=== PATIENT | female | born 1945 | race Caucasian/White ===

== ENCOUNTER 2018-02-27 14:16 | Inpatient (IN) ==
--- OUTSIDE RECORDS SUMMARY | 2018-02-27 14:29 | External Medical Summary ---
:1945 Author Organization [employer] Care Team Providers Name Role Phone Peterson Kumar Provider Role Unavailable Allergies, Adverse Reactions, Alerts Substance Reaction Event Type Morphine Sulfate (pf) *analgesics Opioid* Info Not Available Non Drug Allergy Aleve *analgesics Antiinflammatory* Info Not Available Non Drug Allergy Hydrochlorothiazide *diuretics* Info Not Available Non Drug Allergy Cephalosporins Info Not Available Non Drug Allergy Hydrocodoneacetaminophen *analgesics Opioid* Info Not Available Non Drug Allergy Sulfa Drugs Info Not Available Non Drug Allergy Acetaminophen Extra Strength *analgesics Info Not Available Non Drug Allergy Nonnarco Problems Problem Type Condition Code Onset Dates Condition Status Problem Diarrhea 787.91 Inactive Problem Acute pancreatitis 577.0 Active Problem Nausea alone 787.02 Active Problem Need for influenza vaccination Z23 Active Problem Hyperlipemia 272.4 Active Problem DM w/o complication type II, E11.65 Active uncontrolled Problem Abdominal pain 789.00 Active Problem Cyst and pseudocyst of pancreas 577.2 Active Problem Elevated liver enzymes 790.5 Active Problem 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 Assessment Need for influenza vaccination Z23 Active Problem Open wound of abdominal wall, 879.4 Inactive lateral, without mention of complication Problem Open wound(s) (multiple) of 879.8 Inactive unspecified site(s), without mention of complication Assessment DM w/o complication type II, E11.65 Active uncontrolled Problem Diabetes mellitus without mention of 250.02 Active complication, type II or unspecified type, uncontrolled Problem Fistula of intestine, excluding 569.81 Inactive rectum and anus Problem Other specified counseling V65.49 Inactive Medications Medication Code Code Instructions Start End Status Dosage System Date Date Bisacodyl EC [facility] [address]-10 5 MG Oral qd not defined ProAir HFA [facility] [address]-71 108 (90 Base) 2 puffs as MCG/ACT needed Inhalation every [address] [facility] 24664380388 40 MG Orally 1 tablet Calcium One at bedtime NovoLog Flexpen [facility] [address]-47 100 UNIT/ML up 22 Subcutaneous units TID with meals Allergy Relief [facility] [address]-42 10 MG Orally 1 tablet Once a day Tolterodine [facility] [address]-49 4 MG Orally 1 capsule Tartrate ER Once a day Coreg [facility] [address]-86 12.5 MG Oral not 1tab bid defined Albuterol [facility] [address]-91 (2.5 MG/3ML) 3 ml Sulfate 0.083% Inhalation Three times a day Lantus [facility] [address]-26 100 UNIT/ML October 40 units Subcutaneous 2013 daily at bedtime [id number] [facility] [address]35-[address]65 1000 Orally 1 tab daily D3 Adult [facility] [address]57-97489 1000 UNIT not Orally defined Citalopram [facility] [address]-63 20 MG Orally 1 tablet Hydrobromide Once a day Lansoprazole [facility] [address]-79 30 MG Orally 1 tablet Once a day on the tongue and allow to dissolve Advair Diskus [facility] [address]-49 500-50 MCG/DOSE not Inhalation defined 1puff qd EpiPen 2-Sam [facility] [address]-82 0.3 MG/03ML not Injection as defined directed Amlodipine [facility] [address]-54 5 MG Orally BID 1 [address] Besylate MagOx [address] [facility] [address]019 400 (241.3 Mg) not MG Orally defined Glucagon [facility] [address]-61 1 mg Injection March 03, as Emergency use as directed 2014 directed for unconscious low blood sugars Multiple [facility] [address] Oral not Vitamins defined Pen [place] [facility] [id number] 31G X 5 MM 3 (three) 11/11" Misc, daily Fluticasone [facility] [address]-25 50 MCG/ACT 1 spray in Propionate Nasally Once a each day nostril Procedures Procedure Coding System Code Date FLU VAC NO PRSV 4 ROSA ELENA 3 YRS+ CPT-4 07249 Jun 05, 2015 IMMUNIZATION ADMIN CPT-4 74725 Jun 05, 2015 GLYCATED HEMOGLOBIN TEST CPT-4 80407 Jun 05, 2015 Office Visit, Est Pt., Level 4 CPT-4 75739 Jun 05, 2015 Vital Signs Date/Time: Jun 05, 2015 Blood Pressure Systolic 110 mm Hg Weight 218 lbs Height 64.5 in BMI 36.84 Index Respiratory Rate 16 /min Cardiac Monitoring Heart Rate 60 /min Blood Pressure Diastolic 70 mm Hg Results No Known Results Immunizations Vaccine Administration Date Influenza Split 3 yrs > (QUAD) Jun 05, 2015 Summary Purpose [employer]Works Submission
--- OUTSIDE RECORDS SUMMARY | 2018-02-27 14:29 | External Medical Summary ---
:1945 Author Organization [employer] Care Team Providers Name Role Phone Peterson Kumar Provider Role Unavailable Allergies, Adverse Reactions, Alerts Substance Reaction Event Type Acetaminophen Extra Strength *analgesics Info Not Available Non Drug Allergy Nonnarco Morphine Sulfate (pf) *analgesics Opioid* Info Not [...] Drug Allergy Nonnarco Problems Problem Type Condition ICD-9 Code Onset Dates Condition Status Problem Diabetes mellitus without 250.02 Active mention of complication, type II or unspecified type, uncontrolled Problem Diarrhea 787.91 Inactive Problem Other specified counseling V65.49 Inactive Problem Elevated liver enzymes 790.5 Active Problem 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 Problem Hyperlipemia 272.4 Active Problem Acute pancreatitis 577.0 Active Problem Nausea alone 787.02 Active Problem Abdominal pain 789.00 Active Problem Cyst and pseudocyst of pancreas 577.2 Active Assessment Diabetes mellitus without 250.02 Active mention of complication, type II or unspecified type, uncontrolled Problem Fistula of intestine, excluding 569.81 Inactive rectum and anus Problem Open wound of abdominal wall, 879.4 Inactive lateral, without mention of complication Assessment Hyperlipemia 272.4 Active Problem Open wound(s) (multiple) of 879.8 Inactive unspecified site(s), without mention of complication Medications Medication Code Code Instructions Start End Date Status Dosage System Date Prevacid [facility][NOTE 3] 87098-04 30 MG Oral 1 not defined - daily Multiple [facility][NOTE 3] 45155-85 Oral not defined Vitamins 912 Pen [place] 0 31G X 5 MM 3 November 23, not defined 11/11" (three) [facility] [place] [place] 2013 daily Norvasc [facility][NOTE 3] 51949-00 5 MG Orally Once 1 tablet 30-41 a day Advair Diskus [facility][NOTE 3] 70680-94 500-50 MCG/DOSE not defined 97-00 Inhalation 1puff qd Atorvastatin [facility][NOTE 3] 87139-29 40 MG Orally One Sep 04, 1 tablet Calcium 21-05 at bedtime 2015 Coreg [facility][NOTE 3] 05303-73 12.5 MG Oral not defined 41-20 1tab bid Lantus [facility][NOTE 3] 40054-06 100 UNIT/ML November 23, insulin 20-33 Subcutaneous 40 2013 units at bedtime NovoLog Flexpen [facility][NOTE 3] 31443-92 100 UNIT/ML Oct 12, carb ratio 39-10 Subcutaneous 10 2013 dose units with meals ProAir HFA [facility][NOTE 3] 67368-30 108 (90 Base) 2 puffs as 51-85 MCG/ACT needed Inhalation every 4 hrs Mucinex DM [facility][NOTE 3] 04408-75 30-600 MG Orally 1 tablet as 96-20 every 12 hrs needed Bisacodyl EC [facility][NOTE 3] 96660-73 5 MG Oral qd not defined 98-03 Flonase [facility][NOTE 3] 16462-37 50 MCG/ACT Nasal not defined 53-01 Zofran [facility][NOTE 3] 58490-84 4 MG Oral 1tab q not defined 46-00 46hrs prn Pen [place] 0 31G X 6 MM 1 Oct 12, not defined (one) Misc three 2014 times daily Celexa [facility][NOTE 3] 63043-57 20 MG Oral 1tab not defined 20-01 qd Detrol LA [facility][NOTE 3] 95729-10 4 MG Oral qd not defined 91-01 EpiPen 2-Sam [facility][NOTE 3] 95402-71 0.3 MG/03ML not defined 00- Injection as directed Procedures Procedure Coding System Code Date Office Visit, Est Pt., Level 4 CPT-4 09604 Sep 04, 2014 Vital Signs Date/Time: Sep 04, 2014 Blood Pressure Systolic 130 mm Hg Weight 214 lbs Height 64.5 in BMI 36.16 Index Respiratory Rate 16 /min Cardiac Monitoring Heart Rate 66 /min Blood Pressure Diastolic 72 mm Hg Results No Known Results Summary Purpose [employer]ClinicalWorks Submission
--- OUTSIDE RECORDS SUMMARY | 2018-02-27 14:29 | External Medical Summary | Clinical Summary ---
:1945 Author Organization [facility] Address [address] [place] [address] Care Team Providers Name Role Phone HollinsAna Unavailable Unavailable Rosenda Rene MD Unavailable Jarad Ames MD Primary Care Provider Source Comments Some departments are not documenting in the electronic medical record. If you do not see the information that you expected, contact Release of Information in the Health Information Management department at [phone] for further assistance in locating additional records.[facility] Allergies Active Allergy Reactions Severity Noted Date Comments Naproxen Sodium RASH Medium 04/07/2015 Cephalosporins HIVES Medium 04/07/2015 Hydrochlorothiazide RASH Medium 04/07/2015 Hydrocodone RASH Medium 04/07/2015 Morphine RASH Medium 04/07/2015 Sulfa (Sulfonamide Antibiotics) RASH Medium 04/07/2015 Current Medications Prescription Sig. Disp. Refills Start Date End Date Status citalopram (CELEXA) 20 Take 200 mg by mouth Active mg tablet daily. lansoprazole DR(+) Take 30 mg by mouth Active (PREVACID) 30 mg capsule daily. tolterodine LA(+) Take 4 mg by mouth Active (DETROL LA) 4 mg capsule daily. atorvastatin (LIPITOR) Take 40 mg by mouth Active 40 mg tablet daily. fluticasone-salmeterol Inhale 1 Puff by Active (ADVAIR DISKUS) 500-50 mouth every 12 mcg inhalation disk hours. albuterol (PROAIR HFA) Inhale 2 Puffs by Active 90 mcg/actuation inhaler mouth every 6 hours as needed for Wheezing. albuterol 0.5% Inhale 2.5 mg Active (PROVENTIL; VENTOLIN) solution as directed 2.5 mg/0.5 mL nebu every 6 hours as nebulizer solution needed. insulin glargine Inject 40 Units into Active (LANTUS) 100 unit/mL area(s) as directed injection at bedtime daily. bisacodyl (DULCOLAX) 5 Take 5 mg by mouth Active mg tablet every 24 hours as needed for Constipation. aspirin EC 81 mg tablet Take 81 mg by mouth Active daily. Active Problems Problem Noted Date Sensorineural hearing loss, bilateral 04/07/2015 Subjective tinnitus of both ears 04/07/2015 Family History Medical History Relation Name Comments Dizziness Mother Hypertension Mother Stroke Mother Dizziness Paternal Grandmother Allergy-severe Sister Dizziness Sister Hypertension Sister Anemia Sister Relation Name Status Comments Father Mother Paternal Grandmother Sister Alive Sister Alive Sister Alive Social History Tobacco Use Types Packs/Day Years Used Date Never Smoker Smokeless Tobacco: Never Used Alcohol Use Drinks/Week oz/Week Comments No Sex Assigned at Date Recorded Not on file Last Filed Vital Signs Vital Sign Reading Time Taken Blood Pressure 138/70 04/07/2015 8:26 AM CDT Pulse 65 04/07/2015 8:26 AM CDT Temperature - - Respiratory Rate - - Oxygen Saturation - - Inhaled Oxygen Concentration - - Weight 99.8 kg (220 lb) 04/07/2015 8:26 AM CDT Height 165.1 cm (5' 5") 04/07/2015 8:26 AM CDT Body Mass Index 36.61 04/07/2015 8:26 AM CDT Plan of Treatment Health Maintenance Due Date Last Done Comments PHYSICAL (COMPREHENSIVE) EXAM 1950 PERTUSSIS VACCINE 1954 TETANUS VACCINE 1960 BREAST CANCER SCREENING 1983 COLORECTAL CANCER SCREENING 1993 SHINGLES RECOMBINANT VACCINE (1 of 2) 1993 OSTEOPOROSIS SCREENING 2008 PNEUMONIA (PCV13/PPSV23) VACCINES (1 of 2 - PCV13) 2008 INFLUENZA VACCINE 05/29/2018
--- OUTSIDE RECORDS SUMMARY | 2018-02-27 14:30 | External Medical Summary ---
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 Assessment Diabetic retinopathy without E11.319 Active macular edema Problem Open wound of abdominal wall, 879.4 Inactive lateral, without mention of complication Problem Open wound(s) (multiple) of 879.8 Inactive unspecified site(s), without mention of complication Assessment DM w/o complication type II, E11.65 Active uncontrolled Problem Diabetes mellitus without mention 250.02 Active of complication, type II or unspecified type, uncontrolled Problem Fistula of intestine, excluding 569.81 Inactive rectum and anus Problem Other specified counseling V65.49 Inactive Medications Medication Code Code Instructions Start End Status Dosage System Date Date Lansoprazole [facility] [address]-94 30 MG Orally 1 tablet Once a day on the tongue and allow to dissolve Fluticasone [facility] [address]-69 50 MCG/ACT 1 spray in Propionate Nasally Once a each day nostril Albuterol [facility] [address]-53 (2.5 MG/3ML) 3 ml Sulfate 0.083% Inhalation Three times a day Allergy Relief [facility] [address]-79 10 MG Orally 1 tablet Once a day D3 Adult [facility] 45[address]87 1000 UNIT not Orally defined Pen [place] [facility] 01150235290 31G X 5 MM 3 (three) 11/11" Misc, daily Bisacodyl EC [facility] [address]-94 5 MG Oral qd not defined Citalopram [facility] [address]-17 20 MG Orally 1 tablet Hydrobromide Once a day NovoLog Flexpen [facility] [address]-96 100 UNIT/ML up 22 Subcutaneous units TID with meals MagOx 400 [facility] [address]25-[address]50 400 (241.3 Mg) not MG Orally defined Atorvastatin [facility] 52041725349 40 MG Orally 1 tablet Calcium One at bedtime Glucagon [facility] [address]-18 1 mg Injection March 03, as Emergency use as directed 2014 directed for unconscious low blood sugars Coreg [facility] [address]-72 12.5 MG Oral not 1tab bid defined Multiple [facility] [address]376 Oral not Vitamins defined Tolterodine [facility] [address]-76 4 MG Orally 1 capsule Tartrate ER Once a day Amlodipine [facility] [address]-94 5 MG Orally BID 1 tablet Besylate EpiPen 2-Sam [facility] [address]-88 0.3 MG/03ML not Injection as defined directed Lantus [facility] [address]-08 100 UNIT/ML October 40 units Subcutaneous 2013 daily at bedtime Advair Diskus [facility] [address]-70 500-50 MCG/DOSE not Inhalation defined 1puff qd W97-Zuqtzl [facility] [address]00-[address]52 1000 Orally 1 tab daily ProAir HFA [facility] [address]-98 108 (90 Base) 2 puffs as MCG/ACT needed Inhalation every 4 hrs Procedures Procedure Coding System Code Date GLUCOSE MONITORING, CONT CPT-4 94649 Jun 06, 2015 Results No Known Results Summary Purpose eClinicalWorks Submission
--- OUTSIDE RECORDS SUMMARY | 2018-02-27 14:30 | External Medical Summary ---
:1945 Author Organization [employer] Care Team Providers Name Role Phone Leann Durant Provider Role Unavailable Allergies, Adverse Reactions, Alerts [...] and pseudocyst of pancreas 577.2 Active Assessment Elevated liver enzymes 790.5 Active Problem Fistula of intestine, excluding 569.81 Inactive rectum and anus Problem Open wound of abdominal wall, 879.4 Inactive lateral, without mention of complication Problem Open wound(s) (multiple) of 879.8 Inactive unspecified site(s), without mention of complication Medications Medication Code System Code Instructions Start End Date Status Dosage Date Mucinex DM [facility] 57215-63 30-600 MG Orally 1 tablet as 96-20 every 12 hrs needed Pen Man [facility] 0 31G X 5 MM 3 November 23, not defined 11/11" (three) [facility] [place] 2013 daily Detrol LA [facility] 41480-99 4 MG Oral qd not defined Flonase [facility] 84006-51 50 MCG/ACT Nasal not defined Celexa [facility] 56726-02 20 MG Oral 1tab not defined qd Lantus [facility] 16345-44 100 UNIT/ML November 23, Insulin 20-33 Subcutaneous 35 2014 units qhs Multiple [facility] 87179-10 Oral not defined Vitamins 912 Prevacid [facility] 71630-57 30 MG Oral 1 not defined - daily Advair Diskus [facility] 98289-98 500-50 MCG/DOSE not defined 97-00 Inhalation 1puff qd Bisacodyl EC [facility] 31747-45 5 MG Oral qd not defined 98-03 Zofran [facility] 08244-76 4 MG Oral 1tab q not defined 46-00 46hrs prn EpiPen 2-Sam [facility] 37800-22 0.3 MG/03ML not defined Injection as directed Pen Man [facility] 0 31G X 6 MM 1 Oct 12, not defined (one) Mis three 2014 times daily Coreg [facility] 06074-00 12.5 MG Oral not defined 41-20 1tab bid ProAir HFA [facility] 65221-76 108 (90 Base) 2 puffs as 51-85 MCG/ACT needed Inhalation every 4 hrs Norvasc [facility] 71685-10 5 MG Orally Once 1 tablet 30-41 a day NovoLog Flexpen [facility] 01447-08 100 UNIT/ML Oct 12, carb ratio 39-10 Subcutaneous 10 2013 dose units with meals Procedures Procedure Coding System Code Date Billed by outside source CPT-4 NOBLL Sep 04, 2014 Vital Signs Date/Time: Sep 04, 2014 Blood Pressure Systolic 150 mm Hg Weight 214 lbs Height 64.5 in BMI 36.16 Index Respiratory Rate 16 /min Cardiac Monitoring Heart Rate 60 /min Blood Pressure Diastolic 76 mm Hg Results No Known Results Summary Purpose [employer]ClinicalWorks Submission
--- OUTSIDE RECORDS SUMMARY | 2018-02-27 14:30 | External Medical Summary ---
:1945 Author Organization [employer] Care Team Providers Name Role Phone Peterson Kumar Provider Role Unavailable Allergies No Known Allergies Problems Problem Type Condition Code Onset Dates Condition Status Problem Diabetes mellitus without mention of 250.02 [...] and pseudocyst of pancreas 577.2 Active Problem Fistula of intestine, excluding 569.81 Inactive rectum and anus Problem Open wound of abdominal wall, 879.4 Inactive lateral, without mention of complication Problem Open wound(s) (multiple) of 879.8 Inactive unspecified site(s), without mention of complication Medications No Known Medications Results No Known Results Summary Purpose [facility] Submission
--- OUTSIDE RECORDS SUMMARY | 2018-02-27 14:30 | External Medical Summary ---
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
--- OUTSIDE RECORDS SUMMARY | 2018-02-27 14:30 | External Medical Summary ---
:1945 Author Organization [employer] Care Team Providers Name Role Phone Leann Durant Provider Role Unavailable Allergies, Adverse Reactions, Alerts Substance Reaction Event Type Hydrochlorothiazide *diuretics* Info Not Available Non Drug Allergy Cephalosporins Info Not Available Non Drug Allergy Hydrocodoneacetaminophen *analgesics Opioid* Info Not Available Non Drug Allergy Sulfa Drugs Info Not Available Non Drug Allergy Acetaminophen Extra Strength *analgesics Info Not Available Non Drug Allergy Nonnarco Acetaminophen Extra Strength *analgesics Info Not Available Non Drug Allergy Nonnarco Morphine Sulfate (pf) *analgesics Opioid* Info Not Available Non Drug Allergy Aleve *analgesics Antiinflammatory* Info Not Available Non Drug Allergy Problems Problem Type Condition ICD-9 Code Onset Dates Condition Status Problem Open wound of abdominal wall, 879.4 Inactive lateral, without mention of complication Problem Diabetes mellitus without 250.02 Active mention of complication, type II or unspecified type, uncontrolled Problem Open wound(s) (multiple) of 879.8 Inactive unspecified site(s), without mention of complication Problem Abdominal pain 789.00 Active Problem Cyst and pseudocyst of pancreas 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.2 Active Problem 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 Problem Diarrhea 787.91 Inactive Problem Other specified counseling V65.49 Inactive Problem Acute pancreatitis 577.0 Active Problem Nausea alone 787.02 Active Assessment Abdominal pain 789.00 Active Assessment 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 Problem Fistula of intestine, excluding 569.81 Inactive rectum and anus Medications Medication Code System Code Instructions Start End Date Status Dosage Date Multiple [facility] 47095-62 Oral Active not defined Vitamins 912 Bisacodyl EC [facility] 68523-80 5 MG Oral qd Active not defined 98-03 Lantus [facility] 67262-23 100 UNIT/ML November 23, Active Insulin 20-33 Subcutaneous 35 2014 units qhs Celexa [facility] 14772-21 20 MG Oral 1tab Active not defined 20- qd Norvasc [facility] 41186-15 5 MG Orally Once Active 1 tablet 30-41 a day Advair Diskus [facility] 51328-10 500-50 MCG/DOSE Active not defined 97-00 Inhalation 1puff qd EpiPen 2-Sam [facility] 79901-73 0.3 MG/03ML Active not defined 00 Injection as directed Zofran [facility] 50558-20 4 MG Oral 1tab q Active not defined 46-00 46hrs prn Prevacid [facility] 39613-19 30 MG Oral 1 [place] [address]-15 4 MG Oral qd Active not defined Pen [place] 0 31G X 5 MM 3 November 23, Active not defined 11/11" (three) [facility] [place] NovoLog Flexpen [facility] 13037-88 100 UNIT/ML Oct 12, Active carb ratio 39-10 Subcutaneous 2013 dose units with meals Amlodipine [facility] 09665-25 2.5 MG Oral bid Active not defined Besylate Docusate Sodium [facility] 55312-37 50 MG/15ML Oral Active not defined 02-19 50ml bid Flonase [facility] 40367-57 50 MCG/ACT Nasal Active not defined Pen [place] NDC 0 31G X 6 MM 1 Oct 12, Active not defined (one) [facility] [place] 2014 times daily Coreg [facility] 33101-20 12.5 MG Oral Active not defined 41-20 1tab bid Procedures Procedure Coding System Code Date Office Visit, Est Pt., Level 3 CPT-4 47525 Jun 14, 2014 Vital Signs Date/Time: Jun 14, 2014 Blood Pressure Systolic 144 mm Hg Weight 209.3 lbs Height 64.5 in BMI 35.37 Index Respiratory Rate 16 /min Cardiac Monitoring Heart Rate 72 /min Blood Pressure Diastolic 68 mm Hg Results No Known Results Summary Purpose [employer] Submission
--- OUTSIDE RECORDS SUMMARY | 2018-02-27 14:30 | External Medical Summary ---
[...] Start End Status Dosage System Date Date [place] 0 31G X 6 MM 1 Oct 12, not (one) [facility] [place] 2013 defined three times daily Multiple [facility] [place]NOTE 3] [address] Oral not Vitamins defined Celexa [facility] [place][NOTE 3] [address]-51 20 MG Oral 1tab not qd defined Pen [place] [facility] [place]NOTE 3] 23384839366 31G X 5 MM 3 (three) 11/11" [facility] [place], daily Zofran [facility] [place][NOTE 3] [address]-42 4 MG Oral 1tab not q 46hrs prn defined Advair Diskus [facility] [place][NOTE 3] [address]-43 500-50 MCG/DOSE not Inhalation defined 1puff qd Atorvastatin [facility] [place][NOTE 3] 33711091332 40 MG Orally 1 tablet Calcium One at bedtime Coreg [facility] [place]NOTE 3] [address]-46 12.5 MG Oral not 1tab bid defined NovoLog Flexpen [facility] [place]NOTE 3] [address]-53 100 UNIT/ML up 22 Subcutaneous units TID with meals Lantus [facility]NOTE 3] [address]-76 100 UNIT/ML October 40 units Subcutaneous 2013 daily at bedtime Mucinex DM [facility] [place][NOTE 3] [address]-19 30-600 MG 1 tablet Orally every 12 as needed hrs ProAir HFA [facility] [place]NOTE 3] [address]-09 108 (90 Base) 2 puffs as MCG/ACT needed Inhalation every 4 hrs Bisacodyl EC [facility] [place]NOTE 3] [address]-90 5 MG Oral qd not defined Flonase [facility] [place]NOTE 3] [address]-64 50 MCG/ACT not Nasal defined Norvasc [facility]NOTE 3] [address]-06 5 MG Orally 1 tablet Once a day Glucagon [facility] [place]NOTE 3] [address]-80 1 mg Injection March 03, as Emergency use as directed 2014 directed for unconscious low blood sugars Prevacid [facility]NOTE 3] [address]-10 30 MG Oral 1 not daily defined Detrol LA [facility] [place]NOTE 3] [address]-96 4 MG Oral qd not defined EpiPen 2-Sam [facility] [place][NOTE 3] [address]-66 0.3 MG/03ML not Injection as defined directed Procedures Procedure Coding System Code Date Office Visit, Est Pt., Level 4 CPT-4 06476 March 03, 2015 GLYCATED HEMOGLOBIN TEST CPT-4 55325 March 03, 2015 Vital Signs Date/Time: March 03, 2015 Blood Pressure Systolic 140 mm Hg Weight 217 lbs Height 64.5 in BMI 36.67 Index Respiratory Rate 16 /min Cardiac Monitoring Heart Rate 66 /min Blood Pressure Diastolic 80 mm Hg Results Name Result Date Reference Range Unit Abnormality Flag Hemoglobin A1c (HbA1c) Summary Purpose eClinicalWorks Submission
--- OUTSIDE RECORDS SUMMARY | 2018-02-27 14:30 | External Medical Summary ---
:1945 Author Organization eClinicalWorks Care Team Providers Name Role Phone Peterson Kumar Provider Role Unavailable Allergies No Known Allergies Problems Problem Type Condition Code Onset Dates Condition Status Problem Open wound of abdominal wall, 879.4 Inactive lateral, without mention of complication Problem Nausea alone 787.02 Active Problem Open wound(s) (multiple) of 879.8 Inactive unspecified site(s), without mention of complication Problem Fistula of intestine, excluding 569.81 Inactive rectum and anus Problem Diabetes type 2, controlled E11.9 Active Problem Hyperlipemia 272.4 Active Problem Diabetes type 2, uncontrolled E11.65 Active Problem Cyst and pseudocyst of pancreas 577.2 Active Problem Acute pancreatitis 577.0 Active Problem Elevated liver enzymes 790.5 Active Problem 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
--- OUTSIDE RECORDS SUMMARY | 2018-02-27 14:30 | External Medical Summary ---
[...] End Status Dosage System Date Date Lansoprazole [facility] [place] 2] [address]-98 30 MG Orally 1 tablet Once a day on the tongue and allow to dissolve Fluticasone [facility] [place]NOTE 2] [address]-04 50 MCG/ACT 1 spray in Propionate Nasally Once a each day nostril Albuterol [facility] [place]NOTE 2] [address]-88 (2.5 MG/3ML) 3 ml Sulfate 0.083% Inhalation Three times a day Allergy Relief [facility] [place]NOTE 2] [address]-41 10 MG Orally 1 tablet Once a day D3 Adult [facility] [place]NOTE 2] 28[address] 1000 UNIT not Orally defined [place] [facility] [place]NOTE 2] 05446912636 31G X 5 MM 3 (three) 11/11" Misc, daily Bisacodyl EC [facility] [place]NOTE 2] [address]-74 5 MG Oral qd not defined Citalopram [facility] [place]NOTE 2] [address]-92 20 MG Orally 1 tablet Hydrobromide Once a day NovoLog Flexpen [facility] [place]NOTE 2] [address]-68 100 UNIT/ML up 22 Subcutaneous units TID with meals MagOx 400 [facility] [place]NOTE 2] 75953-[address]92 400 (241.3 Mg) not MG Orally defined Atorvastatin [facility] [place]NOTE 2] 12708654874 40 MG Orally 1 tablet Calcium One at bedtime Glucagon [facility] [place]NOTE 2] [address]-71 1 mg Injection March 03, as Emergency use as directed 2014 directed for unconscious low blood sugars Coreg [facility] [place]NOTE 2] [address]-07 12.5 MG Oral not 1tab bid defined Multiple [facility] [place]NOTE 2] 26778-95[address] Oral not Vitamins defined Tolterodine [facility] [place]NOTE 2] [address]-15 4 MG Orally 1 capsule Tartrate ER Once a day Amlodipine [facility] [place]NOTE 2] [address]-66 5 MG Orally BID 1 tablet Besylate EpiPen 2-Sam [facility] [place]NOTE 2] [address]-37 0.3 MG/03ML not Injection as defined directed Lantus [facility] [place]NOTE 2] [address]-58 100 UNIT/ML October 40 units Subcutaneous 2013 daily at bedtime Advair Diskus [facility] [place]NOTE 2] [address]-13 500-50 MCG/DOSE not Inhalation defined 1puff qd J76-Ethkif [facility] [place]NOTE 2] 39067[address] 1000 Orally 1 tab daily ProAir HFA [facility] [place]NOTE 2] [address]-02 108 (90 Base) 2 puffs as MCG/ACT needed Inhalation every 4 hrs Procedures Procedure Coding System Code Date GLUCOSE MONITORING, CONT CPT-4 28529 Jun 06, 2015 Results No Known Results Summary Purpose eClinicalWorks Submission
--- OUTSIDE RECORDS SUMMARY | 2018-02-27 14:30 | External Medical Summary ---
[...] Medications Results No Known Results Summary Purpose [employer] Submission
--- OUTSIDE RECORDS SUMMARY | 2018-02-27 14:31 | External Medical Summary ---
:1945 Author Organization eClinicalWorks Care Team Providers Name Role Phone Peterson Kumar Provider Role Unavailable Allergies No Known Allergies Problems Problem Type Condition Code Onset Dates Condition Status Problem Fistula of intestine, excluding 569.81 Inactive rectum and anus Problem Open wound(s) (multiple) of 879.8 Inactive unspecified site(s), without mention of complication Problem Open wound of abdominal wall, 879.4 Inactive lateral, without mention of complication Problem Hyperlipemia 272.4 Active Problem Elevated liver enzymes 790.5 Active Problem DM w/o complication type II, E11.65 Active uncontrolled Problem Acute pancreatitis 577.0 Active Problem Nausea alone 787.02 Active Problem 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
--- OUTSIDE RECORDS SUMMARY | 2018-02-27 14:31 | External Medical Summary ---
[...] Medications Results No Known Results Summary Purpose [employer] Submission
--- OUTSIDE RECORDS SUMMARY | 2018-02-27 14:31 | External Medical Summary ---
[...] pancreas 577.2 Active Assessment Diabetes mellitus without mention of 250.02 Active complication, type II or unspecified type, uncontrolled Problem Fistula of intestine, excluding 569.81 Inactive rectum and anus Problem Open wound of abdominal wall, 879.4 Inactive lateral, without mention of complication Problem Open wound(s) (multiple) of 879.8 Inactive unspecified site(s), without mention of complication Medications Medication Code Code Instructions Start End Status Dosage System Date Date Detrol LA [facility] [address]-39 4 MG Oral qd not defined Flonase [facility] [address]-29 50 MCG/ACT not Nasal defined Mucinex DM [facility] [address]-20 30-600 MG 1 tablet Orally every 12 as needed hrs Celexa [facility] [address]-29 20 MG Oral 1tab not qd defined Advair Diskus [facility] [address]-95 500-50 MCG/DOSE not Inhalation defined 1puff qd ProAir HFA [facility] [address]-97 108 (90 Base) 2 puffs as MCG/ACT needed Inhalation every 4 hrs Prevacid [facility] [address]-74 30 MG Oral 1 not daily defined NovoLog Flexpen [facility] [id number] 100 UNIT/ML 10 units, Subcutaneo us, with meals Atorvastatin [facility] [address]-87 40 MG Orally Sep 04, 1 tablet Calcium One at bedtime 2014 Norvasc [facility] [address]-49 5 MG Orally 1 tablet Once a day Zofran [facility] [address]-52 4 MG Oral 1tab not q 46hrs prn defined [place] 0 31G X 5 MM 3 October not 11/11" (three) [facility] [place] 2013 defined daily [place] 0 31G X 6 MM 1 Oct 12, not (one) [facility] [place] 2013 defined three times daily Coreg [facility] [address]-75 12.5 MG Oral not 1tab bid defined Lantus [facility] [address]-80 100 UNIT/ML October insulin Subcutaneous 35 2013 units at bedtime Bisacodyl EC [facility] [address]-02 5 MG Oral qd not defined Multiple [facility] [address]7467 Oral not Vitamins defined EpiPen 2-Sam [facility] [address]-58 0.3 MG/03ML not Injection as defined directed Procedures Procedure Coding System Code Date Office Visit, Est Pt., Level 4 CPT-4 59520 December 02, 2014 GLYCATED HEMOGLOBIN TEST CPT-4 41818 December 02, 2014 Vital Signs Date/Time: December 02, 2014 Blood Pressure Systolic 130 mm Hg Weight 214.4 lbs Height 64.5 in BMI 36.23 Index Respiratory Rate 16 /min Cardiac Monitoring Heart Rate 66 /min Blood Pressure Diastolic 72 mm Hg Results No Known Results Summary Purpose eClinicalWorks Submission
--- OUTSIDE RECORDS SUMMARY | 2018-02-27 14:31 | External Medical Summary ---
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 Medications Medication Code Code Instructions Start End Status Dosage System Date Date Allergy Relief [facility] [address]-74 10 MG Orally 1 tablet Once a day Fluticasone [facility] [address]-25 50 MCG/ACT 1 spray in Propionate Nasally Once a each day nostril Tolterodine [facility] [address]-31 4 MG Orally 1 capsule Tartrate ER Once a day Citalopram [facility] [address]-51 20 MG Orally 1 tablet Hydrobromide Once a day Potassium [facility] [address]-05 20 MEQ Orally not Chloride once daily defined PC Unifine [facility] 8214-354832 31G X 8 MM March 23, as Pentips subcutaneous 2016 directed three times a day NovoLog Flexpen [facility] [address]-92 100 UNIT/ML up to 12 Subcutaneous on units with slliding scale each meal D3 Adult [facility] [address]3410 1000 UNIT not Orally defined Glucagon [facility] [address]-29 1 mg Injection March 03, as Emergency use as directed 2014 directed for unconscious low blood sugars Lasix [facility] [address]-46 40 MG Orally 1 1 tablet tablet am and noon Symbicort [facility] [address]-06 160-4.5 MCG/ACT 2 puffs Inhalation every 12 hours Spiriva NDC 0 2.5 mcg 2 puffs Respimat Inhalation Daily Accu-Chek NDC 0 1 In Vitro Apr 01, as SmartView times daily 2015 directed Coreg [facility] [address]-25 12.5 MG Oral 1/2 tablet bid [id number] [facility] [address]607 Orally daily 1 tab 100mcg Amlodipine [facility] [address]-58 5 MG Orally BID 1 tablet Besylate Multiple [facility] [address]86 Oral not Vitamins defined [place] [facility] 40553291463 31G X 5 MM 3 (three) 11/11" Misc, daily Lansoprazole [facility] [address]-07 30 MG Orally 1 tablet Once a day on the tongue and allow to dissolve MagOx 400 [facility] [address]-22441 64 mg Orally 64mg once a day Bisacodyl EC [facility] [address]-24 5 MG Oral qd not defined EpiPen 2-Sam [facility] [address]-33 0.3 MG/03ML not Injection as defined directed Aspirin [facility] [address]-99 81 MG Orally 1 tablet Once a day Zofran [facility] [address]-86 4 MG Orally 1 tablet Once a day as needed Atorvastatin [facility] 27573417281 40 MG Orally 1 tablet Calcium One at bedtime Alprazolam [facility] [address]-90 0.5 MG Orally 1/2 tablet as needed Lantus [facility] [address]-58 100 UNIT/ML Aug 25, 50 units Subcutaneous 2014 daily at bedtime Procedures Procedure Coding System Code Date Office Visit, Est Pt., Level 4 CPT-4 79376 Apr 01, 2016 HG A1C LEVEL 7.0-9.0% CPT-4 3045F Apr 01, 2016 GLYCATED HEMOGLOBIN TEST IH CPT-4 60241 Apr 01, 2016 Vital Signs Date/Time: Apr 01, 2016 Blood Pressure Systolic 126 mm Hg Weight 211 lbs Height 64.5 in BMI 35.65 Index Respiratory Rate 16 /min Cardiac Monitoring Heart Rate 74 /min Blood Pressure Diastolic 74 mm Hg Results Name Result Date Reference Range Unit Abnormality Flag Hemoglobin A1c (HbA1c) ----Hemoglobin A1c 7.3% [id number] Summary Purpose eClinicalWorks Submission
--- OUTSIDE RECORDS SUMMARY | 2018-02-27 14:31 | External Medical Summary ---
[...] Medications Results No Known Results Summary Purpose [employer] Submission
[2018-02-27 15:01] VITALS: BMI 35.2
[2018-02-27] MEDS ORDERED: NS 1,000 ML IV ONE (15:21)
--- NOTE | 2018-02-27 15:27 | History & Physical Report ---
History of Present Illness Date: 02/27/18 Chief complaint: Abdominal pain, vomiting HPI: Patient is a 72-year-old female who had a recent history of sciatica pain radiating down the right leg. On 02/25/18, the pain got severe, patient went to [facility] for evaluation. There she was given IV pain medication and discharged home with oral oxycodone 5 milligram tabs. Tuesday evening following taking oxycodone she began to have vomiting and this was persistent on Tuesday. Last night she began having increased abdominal pain accompanied with nausea. This morning she was able to have one very hard bowel movement and also had some bright red blood from straining. She does have a known history of hemorrhoids. This afternoon patient presented to see Dr. Zambrano at [facility] due to her increased abdominal pain and vomiting. He felt the patient needed acute evaluation and treatment. He contacted the hospitalist services and patient was sent as a direct admission to [facility] hospitalist staff. She is admitted as outpatient observation under the care of Dr. Rodriges. Salima is seen for initial examination on arrival. She is alert, oriented, appears to be in a mild amount of distress and relates this to her abdominal pain. She reports currently the pain is worse on the left side of her abdomen at the site of a previous feeding tube. She reports she had the feeding tube for less than 1 year following diagnosis of acute pancreatitis. She has no further problems since that time. Review of Systems All systems PM: 10-point ROS was reviewed, no additional remarkable complaints except - Constitutional Constitutional: Present: anorexia - Gastrointestinal Gastrointestinal: Present: abdominal pain, constipation, nausea, vomiting Past Medical History Medical History: Medical History Osteoarthritis (Chronic) Depression (Chronic) Obesity (Chronic) History of acute pancreatitis (Chronic) Low back pain (Chronic) Osteopenia (Chronic) 06/2002 B12 deficiency (Chronic) Sleep apnea (Chronic) Dyspepsia (Chronic) Peripheral neuropathy (Chronic) feet Diabetes mellitus (Chronic) HTN (hypertension) (Chronic) Pancreatic cyst (Chronic) Pancreatitis, chronic (Chronic) Surgical History: Hx Feeding tube during acute Pancreatitis (unsure of date). Lumpectomy R breast (benign) 1982. KONSTANTIN/BSO 1990. Bladder lift 1992. Cholecystectomy 1995. Bladder sling 01/2007. Cataract surgery 06/2007 (left), 07/2007 (right). Redo cataract surgery 2013 (bilateral). L3-L4 laminectomy/ discectomy 06/2015 (Radha). 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 Jimenez - Pulmonology Dr. Pradhan - Gastroenterology Dr. Garcia - Neurosurgery PETER Antonio - Endocrinology Medications Home Medications Medication Instructions Recorded Confirmed Type Symbicort (Budesonide 160 2 puff INH BID g 02/14/17 02/27/18 History mcg-Formoterol 4.5 mcg)/actuation aerosol inhaler Vitamin B12 2,500 mcg PO DAILY 02/14/17 02/27/18 History Vitamin D3 (cholecalciferol) 1,000 1,000 unit PO DAILY cap 02/14/17 02/27/18 History unit capsule Zyrtec (Cetirizine) 10 mg tablet 10 mg PO DAILY tab 02/14/17 02/27/18 History aspirin 81 mg tablet,delayed 81 mg PO DAILY tab 02/14/17 02/27/18 History release multivitamin with minerals-folic 1 tab PO QMWF tab 02/14/17 02/27/18 History acid 0.4 mg tablet azithromycin 500 mg tablet 1 tab PO QMWF 28 Days #12 04/27/17 02/27/18 History Coreg (carvedilol) 12.5 mg tablet 6.25 mg PO BID #90 tab 07/04/17 02/27/18 Rx K-Tab (potassium chloride ER) 20 20 meq PO DAILY #30 tab 10/19/17 02/27/18 Rx mEq tablet Lipitor (atorvastatin) 40 mg tablet 40 mg PO HS #30 tab 11/01/17 02/27/18 Rx Mag-64 (magnesium chloride) 64 mg 64 mg PO DAILY tab 12/12/17 02/27/18 History tablet,delayed release Prevacid (Lansoprazole) 30 mg 30 mg PO DAILY #90 cap 12/12/17 02/27/18 Rx capsule,delayed release Spiriva Respimat (tiotropium 2 puff INH BID g 12/12/17 02/27/18 History bromide) 2.5 mcg/actuation, inhalation Lyrica (pregabalin) 75 mg capsule 75 mg PO BID #180 cap 12/16/17 02/27/18 Rx Lantus (insulin glargine) 100 36 unit SQ HS ml 02/13/18 02/27/18 History unit/mL SQ Albuterol Sulfate 1 vial INH PRN PRN 02/27/18 02/27/18 History Amlodipine Besylate [Norvasc] 5 mg PO HS 02/27/18 02/27/18 History Citalopram [Celexa] 1 tab PO DAILY 02/27/18 02/27/18 History Docusate Sodium [Stool Softener] 100 mg PO HS 02/27/18 02/27/18 History Fluticasone Nasal [place] [Flonase] 2 spray INTRANASAL DAILY 02/27/18 02/27/18 History Furosemide [Lasix 40 mg Tab] 40 mg PO BID 02/27/18 02/27/18 History Insulin Aspart [Novolog Flexpen] See Protocol SQ TID 02/27/18 02/27/18 History Lactobacillus Acidophilus 1 each PO DAILY 02/27/18 02/27/18 History [Probiotic] Ondansetron [Zofran Odt] 1 tab PO Q6HR PRN 02/27/18 02/27/18 History Roxicodone (Oxycodone) 5 mg tablet 5 mg PO Q6H PRN 5 Days tab 02/27/18 History Tolterodine LA 4 mg [Detrol LA] 4 mg PO DAILY 02/27/18 02/27/18 History Vit A/Vit C/Vit E/Zinc/Copper 1 tab PO QTUTHSASU 02/27/18 02/27/18 History [Preservision Areds Tablet] Allergies Allergy/AdvReac Type Severity Reaction Status Date / Time morphine Allergy Intermediate itching Verified 02/27/18 15:32 acetaminophen Allergy Unknown Verified 02/27/18 15:32 Cephalosporins Allergy Unknown Verified 02/27/18 15:32 hydrochlorothiazide Allergy Unknown PER PT: Verified 02/27/18 15:32 HIVES hydrocodone Allergy Unknown ITCHING Verified 02/27/18 15:32 Sulfa (Sulfonamide Allergy Unknown PER PT: Verified 02/27/18 15:32 Antibiotics) THROAT SWELLING, HIVES naproxen sodium Allergy Unknown HIVES Uncoded 02/27/18 15:32 Exam Height/Weight/BMI: Height 1.65 m Weight 96.1 kg Body Mass Index 35.2 - Constitutional Present: mild distress, well nourished, well developed - Routine HEENT Exam Eye: Present: EOMI ENT: Present: mucous membranes moist, dentition normal - Routine Respiratory Exam Present: CTA bilaterally. Absent: wheezes - Routine Cardiovascular Exam Present: RRR, S1, S2. Absent: murmur - Routine Abdominal Exam Present: soft, tenderness (Diffuse tender- Increased to Left), non distended. Absent: normoactive bowel sounds (Hypoactive) - Routine Extremities Exam Present: normal capillary refill - Routine Skin Exam Present: intact, dry, warm - Routine Neurological Exam Present: alert, oriented X3, CN II-XII intact, moving all extremities - Routine Psychiatric Exam Present: normal affect, cooperative, anxious Results - Labs CBC & Chem 7: 02/27/18 15:03 02/27/18 15:03 Assessment and Plan (1) Abdominal pain Current visit: Yes Status: Acute (2) Vomiting Current visit: Yes Status: Acute Assessment and Plan: Impression Acute abdominal pain Nausea and Vomiting Constipation Chronic Low back pain Hx chronic pancreatitis Diabetes mellitus Hypertension Peripheral neuropathy Hx feeding tube with pancreatitis Obesity Plan Admit patient outpatient observation under the care of Dr. Chavez for acute abdominal pain with nausea and vomiting Will begin acute workup, CBC, CMP, magnesium, prealbumin, and urinalysis. Will place patient on cardiac telemetry to review cardiac rhythm. Will obtain CT scan of the abdomen and pelvis to rule out acute obstructive pattern or pancreatitis. Etiology of abdominal pain and nausea is unclear as this could be secondary to use of oxycodone versus bowel obstruction versus acute flareup of chronic pancreatitis Will hydrate patient with 1 liter of normal saline over 1 hour. We will then decrease rate to 100 mL per hour. Reglan and Zofran available as needed for nausea and vomiting. Monitor Accu-Cheks given patient's history of diabetes mellitus Patient does wish to be a full code and this order is written. Review home medications once they're reconciled by nursing staff Will discuss further orders and plan of care with attending, Dr. Rodriges At time of discharge medical care will return to primary care provider, Dr Jarad Ames DVT Prophylaxis: SCD's Resuscitation Status: Full Code - Physician Narrative Physician: Kyle Rodriges MD Narrative: Date: 02/27/18 Time: 1523 Have independently interviewed and examined pt. Chart reviewed. Case discussed with my CYCLE MANAGER. Care plan developed with my supervision; agree with above. Present to clinic do to increasing ab pain and n/v. Was seen in ED at [facility] secondary to increasing back pain. Started on Narcotic medication to help pain. Since then, abdominal status has worsen. Oral drive decreased-not eaten anything for the past 2 day. Stopped drinking fluids as any oral intake would prompt nausea with emesis. No stools. Not passing flatus. Increasing discomfort to RLQ, worse with movements. Feels some chills. Breathing stable-not having SOA or cough/congestion. No chest pressure or pain. Urine output decreasing- more orange. Urgency to urinate. Sugars decreasing with decreased oral intake. Seen in clinic and with symptoms made direct admit to OBS for further evaluation and treatment. Lungs: decreased, no distress CV: regular AB: soft, slight distention, BS minima MSE: awake alert appropriate, appears apprehensive. Plan: OBS. IVF for hydration. CT scan to exclude pathology. Suspect ileus/ obstipation from narcotics. May have clear liquids as tolerated. Give lower dose of Lantus (30 units) to minimize hypoglycemia. Hold on oral meds for now- restarting as nausea abates. IV antiemetics. Monitor sugars. Monitor lab. Care to return to PCP at discharge. Hospital Course Summary Disclaimer: The visit summary below is not to be considered part of the above Progress Note. Hospital Course: Impression Acute abdominal pain Nausea and Vomiting Constipation Chronic Low back pain Hx chronic pancreatitis Diabetes mellitus Hypertension Peripheral neuropathy Hx feeding tube with pancreatitis Obesity Plan Admit patient outpatient observation under the care of Dr. Rodriges for acute abdominal pain with nausea and vomiting. Will begin acute workup, CBC, CMP, magnesium, prealbumin, and urinalysis. Will place patient on cardiac telemetry to review cardiac rhythm. Will obtain CT scan of the abdomen and pelvis to rule out acute obstructive pattern or pancreatitis. Etiology of abdominal pain and nausea is unclear as this could be secondary to use of oxycodone versus bowel obstruction versus acute flare-up of chronic pancreatitis. Will hydrate patient with 1 liter of normal saline over 1 hour. We will then decrease rate to 100 mL per hour. Reglan and Zofran available as needed for nausea and vomiting. Monitor Accu-Cheks given patient's history of diabetes mellitus Patient does wish to be a full code and this order is written. Review home medications once they're reconciled by nursing staff At time of discharge medical care will return to primary care provider, Dr Jarad Ames.
[2018-02-27] MEDS ORDERED: SALINE FLUSH 10ml SYRINGE ONE (15:57)
[2018-02-27] MEDS ORDERED: IOHEXOL 300mg/ml 100ml INJECTION ONE (15:57)
[2018-02-27] MEDS ORDERED: MORPHINE SULFATE 4mg INJECTION IM PRN (16:42)
[2018-02-27] MEDS ORDERED: FentaNYL 100 MCG/2 ML INJECTION IM ONE (16:44)
[2018-02-27] MEDS: ONDANSETRON 4 MG/2 ML INJECTION IVP PRN (17:41)
[2018-02-27] MEDS ORDERED: ALBUTEROL 2.5mg/3ml (0.083%) NEB AEROSOL PRN (18:04)
[2018-02-27] MEDS ORDERED: ALBUTEROL/IPRATROPIUM 2.5mg-0.5mg/3ml NEB AEROSOL PRN (18:12)
[2018-02-27] MEDS ORDERED: GLUCOSE ORAL GEL 40% 37.5gm PO PRN (18:14)
[2018-02-27] MEDS ORDERED: INSULIN REGULAR, HUMAN 100 UNIT/ML INJECTION SQ PRN (18:14)
[2018-02-27] MEDS: NS 1,000 ML IV SCH (18:54)
[2018-02-27] MEDS ORDERED: Ipratropium Inh NEB 0.02% (0.5mg/2.5ml) AEROSOL SCH (19:00)
[2018-02-27] MEDS: ARFORMOTEROL NEB 15mcg/2ml AEROSOL SCH (19:38)
[2018-02-27] MEDS: BUDESONIDE INH.SOLN 0.5mg/2ml NEB AEROSOL SCH (19:38)
[2018-02-27] MEDS: ALBUTEROL/IPRATROPIUM 2.5mg-0.5mg/3ml NEB AEROSOL SCH (19:38)
[2018-02-27] MEDS: METOCLOPRAMIDE 10mg/2ml INJECTION IVP PRN (20:54)
[2018-02-27] MEDS: FentaNYL 100 MCG/2 ML INJECTION IVP PRN (21:07)
[2018-02-27] MEDS: INSULIN GLARGINE 100unit/ml INJECTION SQ SCH (21:23)
[2018-02-28] MEDS: FentaNYL 100 MCG/2 ML INJECTION IVP PRN ×4 (01:14→21:28)
[2018-02-28] MEDS: ONDANSETRON 4 MG/2 ML INJECTION IVP PRN ×2 (01:20→07:41)
[2018-02-28] MEDS: NS 1,000 ML IV SCH ×2 (05:19→16:23)
[2018-02-28] MEDS: ARFORMOTEROL NEB 15mcg/2ml AEROSOL SCH ×2 (07:06→19:14)
[2018-02-28] MEDS: BUDESONIDE INH.SOLN 0.5mg/2ml NEB AEROSOL SCH ×2 (07:06→19:14)
[2018-02-28] MEDS ORDERED: BISACODYL 10 MG SUPPOSITORY RECTALLY PRN (07:54)
[2018-02-28] MEDS: POLYETHYL GLYCOL 3350 17gm PACKET PO SCH (09:11)
[2018-02-28] MEDS: ALBUTEROL/IPRATROPIUM 2.5mg-0.5mg/3ml NEB AEROSOL SCH ×4 (09:18→19:14)
--- NOTE | 2018-02-28 09:41 | CT Scan Report ---
Indication: abdominal pain, vomiting PROCEDURE: CT abdomen pelvis w con: Encounter: Initial Comparison: None Technique: Axial CT images were performed through the abdomen and pelvis after the administration of intravenous contrast. Coronal and sagittal two-dimensional reformats. Automated Exposure Control and Iterative Reconstruction dose reducing techniques were utilized. Contrast: Omnipaque 300 100 mL Findings: The lung bases are clear. Moderate sized hiatal hernia appears to be a paraesophageal type. The liver shows no enhancing mass. Mild bile duct dilatation probably relates to age and prior cholecystectomy. No obvious common duct stone. The spleen is unremarkable. Pancreas is mostly fatty replaced. The right adrenal gland is normal. Small adenomas or adenomatous hyperplasia of the left adrenal gland. The kidneys are normal. No abdominal or pelvic lymphadenopathy. Bladder is decompressed. Uterus is absent. No free fluid or evidence of a bowel obstruction. Small fat-containing umbilical hernia. Bone windows show degenerative and postoperative changes in the lumbar spine. Impression: No acute disease process seen in the abdomen or pelvis. There is a preliminary report by [employer]. .
[2018-02-28] MEDS: AMLODIPINE 5 MG TABLET PO SCH ×2 (09:59→21:27)
[2018-02-28] MEDS: CARVEDILOL 6.25 MG TABLET PO SCH ×2 (10:00→16:36)
[2018-02-28] MEDS: HYDRALAZINE 20 MG/ML INJECTION IVP PRN (10:33)
--- NOTE | 2018-02-28 10:42 | Progress Note ---
- Date 02/28/18 Subjective: Salima is seen this morning in follow up. She is resting in bed and complains of ongoing nausea without emesis. She reports abdominal discomfort is mild in nature. She is tolerating some sips however has not been able to eat. BP was elevated this morning 200/101. Nurse reports a moderate brown stool this morning. Objective Vital signs: Temperature 97.6 F 02/28/18 07:51 Pulse Rate 90 02/28/18 10:33 Respiratory Rate 14 02/28/18 09:18 Blood Pressure 202/101 H 02/28/18 10:33 Pulse Oximetry 95 02/28/18 09:20 Height/Weight/BMI: Height 1.65 m Weight 96.3 kg Body Mass Index 35.2 - Constitutional Present: no acute distress, well nourished, well developed - Routine HEENT Exam Eye: Present: EOMI ENT: Present: mucous membranes moist, dentition normal - Routine Respiratory Exam Present: CTA bilaterally. Absent: wheezes - Routine Cardiovascular Exam Present: RRR, S1, S2. Absent: murmur - Routine Abdominal Exam Present: soft, non distended. Absent: normoactive bowel sounds (hypoactive ), tenderness - Routine Extremities Exam Present: normal capillary refill - Routine Skin Exam Present: dry, warm - Routine Neurological Exam Present: alert, oriented X3, CN II-XII intact - Routine Lymphatic Exam Lymphatic: Absent: adenopathy - Routine Psychiatric Exam Present: normal affect Results - Labs CBC & Chem 7: 02/27/18 15:03 02/27/18 15:03 Assessment and Plan (1) Abdominal pain Current visit: Yes Status: Acute (2) Vomiting Current visit: Yes Status: Acute Assessment and Plan: Impression Acute abdominal pain Nausea and Vomiting Constipation Chronic Low back pain Hx chronic pancreatitis Diabetes mellitus Hypertension Peripheral neuropathy Hx feeding tube with pancreatitis Obesity Plan Continue with NS at 100ml/hr for gentle hydration Utilizing Zofran, Reglan, will add Compazine for better nausea control. Will also add scopolamine patch Patient given MiraLAX, milk of magnesia this morning with results of a moderate bowel movement. CT of the abdomen did not reveal any acute process. Will work on nausea control. Resume home Norvasc and Coreg for better blood pressure control. May utilize hydralazine 10 milligrams IV as needed Will re-examine later in the day. Hopeful for discharge in the near future once nausea is better controlled DVT Prophylaxis: SCD's Resuscitation Status: Full Code - Time spent with patient Time with patient PN: 25 minutes - Physician Narrative Physician: Kyle Rodriges MD Narrative: Date: 02/28/18 Time: 1607 Have independently interviewed and examined pt. Chart reviewed. Case discussed with CM, pt's , and my PUNCHBOARD ASSEMBLER. Care plan developed with my supervision; agree with above. No significant improvement of ab pain and nausea. Was able to pass some stool without any relief. Minimal intake-no breakfast and at best about 10% or lunch. No appetite. Nausea and dry heaves with any intake. Up minimally-feels very weak in general. Breathing okay, but some increased ab pain with deep breath. Urinating well. Notes LUCERO in posterior aspect of neck. Lungs: decreased, no distress CV: regular AB: mild diffuse tenderness, no rebound, BS not present. MSE: awake alert GEN: looks very weak and ill Plan: Will change admission status to inpatient secondary to persistent ab pain and n/v requiring continued IV pain and nausea medications. Continue IVF for support. Continue with antiemetics. Monitor sugars-Lantus dose decrease on presentation. Monitor lab. Patient clearly still to nauseated to attempt discharge to home. Hospital Course Summary Disclaimer: The visit summary below is not to be considered part of the above Progress Note. Hospital Course: Impression Acute abdominal pain Nausea and Vomiting Constipation Chronic Low back pain Hx chronic pancreatitis Diabetes mellitus Hypertension Peripheral neuropathy Hx feeding tube with pancreatitis Obesity 02/27/18- Plan Admit patient outpatient observation under the care of Dr. Rodriges for acute abdominal pain with nausea and vomiting. Will begin acute workup, CBC, CMP, magnesium, prealbumin, and urinalysis. Will place patient on cardiac telemetry to review cardiac rhythm. Will obtain CT scan of the abdomen and pelvis to rule out acute obstructive pattern or pancreatitis. Etiology of abdominal pain and nausea is unclear as this could be secondary to use of oxycodone versus bowel obstruction versus acute flare-up of chronic pancreatitis. Will hydrate patient with 1 liter of normal saline over 1 hour. We will then decrease rate to 100 mL per hour. Reglan and Zofran available as needed for nausea and vomiting. Monitor Accu-Cheks given patient's history of diabetes mellitus Patient does wish to be a full code and this order is written. Review home medications once they're reconciled by nursing staff At time of discharge medical care will return to primary care provider, Dr Jarad Ames. 02/28/18 Continue with NS at 100ml/hr for gentle hydration. Utilizing Roe Reglan, will add Compazine for better nausea control. Will also add scopolamine patch. Patient given MiraLAX, milk of magnesia this morning with results of a moderate bowel movement. CT of the abdomen did not reveal any acute process. Will work on nausea control. Resume home Norvasc and Coreg for better blood pressure control. May utilize hydralazine 10 milligrams IV as needed. Will re-examine later in the day. Hopeful for discharge in the near future once nausea is better controlled. Recheck this afternoon with no significant improvement in symptoms. Did pass some stool without relief. Needing frequent IV antiemetics to control nausea, still having retching. Oral intake minimal - 0% breakfast, only 10% lunch. Will change admission status to inpatient secondary to persistent ab pain and n/ v requiring continued IV pain and nausea medications.
[2018-02-28] MEDS: METOCLOPRAMIDE 10mg/2ml INJECTION IVP PRN (11:08)
[2018-02-28] MEDS: PROCHLORPERAZINE 10 MG/2 ML INJECTION IVP PRN (13:30)
[2018-02-28] MEDS ORDERED: PNEUMOCOCCAL 23 VACCINE 0.5ml INJECTION IM ONE (14:03)
[2018-02-28] MEDS ORDERED: FALL RISK - PHARMACY CONSULT MC ONE (15:48)
[2018-02-28] MEDS ORDERED: ARTIFICIAL TEARS 15ml EACH EYE PRN (21:24)
[2018-02-28] MEDS: INSULIN GLARGINE 100unit/ml INJECTION SQ SCH (21:26)
[2018-03-01] MEDS: HYDRALAZINE 20 MG/ML INJECTION IVP PRN (01:37)
[2018-03-01] MEDS: NS 1,000 ML IV SCH ×3 (03:40→16:32)
[2018-03-01] MEDS: BUDESONIDE INH.SOLN 0.5mg/2ml NEB AEROSOL SCH ×2 (07:57→21:12)
[2018-03-01] MEDS: ALBUTEROL/IPRATROPIUM 2.5mg-0.5mg/3ml NEB AEROSOL SCH ×4 (07:57→22:15)
[2018-03-01] MEDS: PROCHLORPERAZINE 10 MG/2 ML INJECTION IVP PRN ×2 (09:29→21:25)
[2018-03-01] MEDS: ARFORMOTEROL NEB 15mcg/2ml AEROSOL SCH ×2 (10:12→21:12)
[2018-03-01] MEDS: CARVEDILOL 6.25 MG TABLET PO SCH ×2 (11:49→19:05)
[2018-03-01] MEDS: POLYETHYL GLYCOL 3350 17gm PACKET PO SCH (11:49)
--- NOTE | 2018-03-01 12:56 | Progress Note ---
- Date 03/01/18 Subjective: Salima is still feeling very nauseated. She had IV compazine around 0930 this am which worked temporarily but now is ready for another dose of antiemetics. She has only been able to drink her MiraLAX and some juice this am. She is afraid to drink/eat anything else d/t nausea. She also reports that her g-tube site "popped open", noting both pus and blood. This is the 3rd time it's happened this year, and Dr. Diaz is aware of it and may need to do a procedure. She states that she has chronic abdominal pain around this site and now it feels a bit better. She hasn't had a bowel movement yet today. She feels weak but denies dizziness. Her leg pain is under reasonable control. She feels swollen in her hands/arms. Objective Vital signs: Temperature 96.7 F L 03/01/18 08:45 Pulse Rate 75 03/01/18 08:45 Respiratory Rate 18 03/01/18 11:38 Blood Pressure 163/62 H 03/01/18 08:45 Pulse Oximetry 96 03/01/18 11:38 Height/Weight/BMI: Height 1.65 m Weight 98.6 kg Body Mass Index 35.2 - Constitutional Present: mild distress, obese - Routine HEENT Exam Head: Present: normocephalic Eye: Present: PERRL. Absent: conjunctival icterus, scleral injection ENT: Present: oropharynx clear - Routine Respiratory Exam Present: CTA bilaterally - Routine Cardiovascular Exam Present: RRR, S1, S2 - Routine Abdominal Exam Present: soft, normoactive bowel sounds, non distended, non tender - Routine Extremities Exam Present: edema (trace b/l lower/upper ext.), pulses intact - Routine Skin Exam Present: intact, dry, warm - Routine Neurological Exam Present: alert, oriented X3, CN II-XII intact, moving all extremities, vision grossly intact, hearing grossly intact, normal speech. Absent: sensory deficit , motor deficit, altered mental status, facial asymmetry - Routine Psychiatric Exam Present: normal affect, normal thought process, cooperative Results - Labs CBC & Chem 7: 03/01/18 04:31 03/01/18 04:31 Assessment and Plan (1) Abdominal pain Current visit: Yes Status: Acute (2) Vomiting Current visit: Yes Status: Acute Assessment and Plan: Impression Acute abdominal pain Nausea and Vomiting Constipation Chronic Low back pain Hx chronic pancreatitis Diabetes mellitus Hypertension Peripheral neuropathy Hx feeding tube with pancreatitis Obesity Plan Reduce rate of NS to 60 ml/hr. Weight increasing and pt noticing increasing swelling to extremities. Continue with PRN antiemetics - pt still nauseated/unable to maintain hydration. cont clears. Hypoglycemia of 60 on labs this am, improved to 81 after glucose gel was given. Will decrease Lantus to 26 U (home dose = 36) F/U with Dr. Diaz regarding drainage from PEG site - consider abx coverage. Labs stable. Progress note to be sent to Dr. Diaz. DVT Prophylaxis: SCD's Resuscitation Status: Full Code - Time spent with patient Time with patient PN: 25 minutes - Physician Narrative Physician: Kyle Rodriges MD Narrative: Date: 03/01/18 Time: 1933 Have independently interviewed and examined pt. Chart reviewed. Case discussed with my SCOREBOARD OPERATOR. Care plan developed with my supervision; agree with above. Still feeling pretty rough-notes nausea (not wanting to eat due to worry for increased nausea). Not passing stool, denies flatus. Feels more SOA and congested. Less puffy to hands this evening since IVF rate decreased. Back pain doing fair-not as much pain today. Does feel up to trying PT/OT tomorrow. Lungs: decreased CV: regular AB: soft ND, BS very decreased MSE: awake alert Plan: IVF decreased, will consult with PT/OT tomorrow. Continue to work on nausea control and bowel function. Monitor lab. Hospital Course Summary Disclaimer: The visit summary below is not to be considered part of the above Progress Note. Hospital Course: Impression Acute abdominal pain Nausea and Vomiting Constipation Chronic Low back pain Hx chronic pancreatitis Diabetes mellitus Hypertension Peripheral neuropathy Hx feeding tube with pancreatitis Obesity 02/27/18- Plan Admit patient outpatient observation under the care of Dr. Rodriges for acute abdominal pain with nausea and vomiting. Will begin acute workup, CBC, CMP, magnesium, prealbumin, and urinalysis. Will place patient on cardiac telemetry to review cardiac rhythm. Will obtain CT scan of the abdomen and pelvis to rule out acute obstructive pattern or pancreatitis. Etiology of abdominal pain and nausea is unclear as this could be secondary to use of oxycodone versus bowel obstruction versus acute flare-up of chronic pancreatitis. Will hydrate patient with 1 liter of normal saline over 1 hour. We will then decrease rate to 100 mL per hour. Reglan and Zofran available as needed for nausea and vomiting. Monitor Accu-Cheks given patient's history of diabetes mellitus Patient does wish to be a full code and this order is written. Review home medications once they're reconciled by nursing staff At time of discharge medical care will return to primary care provider, Dr Jarad Ames. 02/28/18 Continue with NS at 100ml/hr for gentle hydration. Utilizing Zofran, Reglan, will add Compazine for better nausea control. Will also add scopolamine patch. Patient given MiraLAX, milk of magnesia this morning with results of a moderate bowel movement. CT of the abdomen did not reveal any acute process. Will work on nausea control. Resume home Norvasc and Coreg for better blood pressure control. May utilize hydralazine 10 milligrams IV as needed. Will re-examine later in the day. Hopeful for discharge in the near future once nausea is better controlled. Recheck this afternoon with no significant improvement in symptoms. Did pass some stool without relief. Needing frequent IV antiemetics to control nausea, still having retching. Oral intake minimal - 0% breakfast, only 10% lunch. Will change admission status to inpatient secondary to persistent ab pain and n/ v requiring continued IV pain and nausea medications. 03/01/18 Reduce rate of NS to 60 ml/hr. Weight increasing and pt noticing increasing swelling to extremities. Continue with PRN antiemetics - pt still nauseated/unable to maintain hydration. Hypoglycemia of 60 on labs this am, improved to 81 after glucose gel was given. Will decrease Lantus to 26 U (home dose = 36) F/U with Dr. Diaz regarding drainage from PEG site - consider abx coverage.
[2018-03-01] MEDS: METOCLOPRAMIDE 10mg/2ml INJECTION IVP PRN (13:06)
[2018-03-01] MEDS: FentaNYL 100 MCG/2 ML INJECTION IVP PRN (15:01)
[2018-03-01] MEDS: ONDANSETRON 4 MG/2 ML INJECTION IVP PRN (20:05)
[2018-03-01] MEDS ORDERED: INSULIN GLARGINE 100unit/ml INJECTION SQ SCH (21:00)
[2018-03-01] MEDS: AMLODIPINE 5 MG TABLET PO SCH (21:25)
[2018-03-02] MEDS: HYDRALAZINE 20 MG/ML INJECTION IVP PRN ×2 (00:46→11:32)
[2018-03-02] MEDS: NS 1,000 ML IV SCH (08:25)
[2018-03-02 08:28] VITALS: TEMP 97
[2018-03-02] MEDS: CARVEDILOL 6.25 MG TABLET PO SCH (08:44)
[2018-03-02] MEDS: POLYETHYL GLYCOL 3350 17gm PACKET PO SCH (08:44)
[2018-03-02] MEDS: BUDESONIDE INH.SOLN 0.5mg/2ml NEB AEROSOL SCH (08:50)
[2018-03-02] MEDS: ALBUTEROL/IPRATROPIUM 2.5mg-0.5mg/3ml NEB AEROSOL SCH ×2 (08:50→13:14)
[2018-03-02] MEDS: ARFORMOTEROL NEB 15mcg/2ml AEROSOL SCH (11:08)
[2018-03-02] MEDS: ONDANSETRON 4 MG/2 ML INJECTION IVP PRN (11:22)
[2018-03-02 11:34] VITALS: BP 180/99; PULSE 68
[2018-03-02 13:23] VITALS: RESP 20; O2SAT 95
--- NOTE | 2018-03-02 14:35 | Progress Note ---
- Date 03/02/18 Subjective: F/U: Acute abdominal pain, Nausea and Vomiting, Constipation, Chronic Low back pain Doing better today. Still with nausea, but decreasing. Able to take liquids in without emesis. Stools moving. Back pain still present, but more manageable and not needing IV medications to control symptoms. Did very well with therapy today. Breathing well. Urinating well. Feels ready to go home (really wants to go home). Objective Vital signs: Temperature 97 F 03/02/18 08:27 Pulse Rate 68 03/02/18 11:34 Respiratory Rate 20 03/02/18 13:15 Blood Pressure 180/99 H 03/02/18 11:34 Pulse Oximetry 95 03/02/18 13:15 Height/Weight/BMI: Height 1.65 m Weight 98.6 kg Body Mass Index 35.2 - Constitutional Present: well nourished, well developed, average body habitus, obese, cooperative, other (Looks tired). Absent: combative, agitated - Routine HEENT Exam Head: Present: normocephalic, atraumatic Eye: Present: EOMI, PERRL, normal accommodation ENT: Present: mucous membranes moist - Routine Respiratory Exam Present: decreased breath sounds. Absent: respiratory distress, wheezes, crackles - Routine Cardiovascular Exam Present: RRR, no murmur - Routine Abdominal Exam Present: soft, non distended, non tender. Absent: normoactive bowel sounds ( Decreased), guarding - Routine Extremities Exam Present: edema (Trace), pulses intact. Absent: cyanosis, clubbing - Routine Skin Exam Present: intact, dry, warm - Routine Neurological Exam Present: alert, oriented X3, CN II-XII intact, moving all extremities, vision grossly intact, hearing grossly intact, normal speech. Absent: motor deficit, altered mental status - Routine Psychiatric Exam Present: normal affect, cooperative. Absent: anxious, agitated Results - Labs CBC & Chem 7: 03/01/18 04:31 03/02/18 08:46 Assessment and Plan (1) Abdominal pain Current visit: Yes Status: Acute (2) Vomiting Current visit: Yes Status: Acute Assessment and Plan: Impression Acute abdominal pain Nausea and Vomiting Constipation Chronic Low back pain Hx chronic pancreatitis Diabetes mellitus Hypertension Peripheral neuropathy Hx feeding tube with pancreatitis Obesity Plan Symptoms improving: nausea decreasing, oral drive increasing, pain stable without IV medications. Did very well with PT this am - completed activities without limitations. Patient feels up to going home, really wants to be discharged. Medically, feel this is reasonable. Recommend bland diet with plenty of liquids, increasing as able. Blood sugars very well controlled - would have pt decrease Lantus to 26U to decrease risk for hypoglycemia. Anticipate needing to gradually increase back to 36 units. Encourage bowel motivation: Daily Miralax-holding with loose stool. MOM and Dulcolax suppositories as needed. Continue home Zofran prn nausea. F/U with Dr Ames in 1 week. See orders for details. Case discussed with patient's . Time spent with care and discharge greater than 30 minutes. DVT Prophylaxis: SCD's Resuscitation Status: Full Code - Physician Narrative Physician: Kyle Rodriges MD Narrative: Date: 03/02/18 Time: 1431 Hospital Course Summary Disclaimer: The visit summary below is not to be considered part of the above Progress Note. Hospital Course: 02/27/18 Admit patient outpatient observation under the care of Dr. Rodriges for acute abdominal pain with nausea and vomiting. Will begin acute workup, CBC, CMP, magnesium, prealbumin, and urinalysis. Will place patient on cardiac telemetry to review cardiac rhythm. Will obtain CT scan of the abdomen and pelvis to rule out acute obstructive pattern or pancreatitis. Etiology of abdominal pain and nausea is unclear as this could be secondary to use of oxycodone versus bowel obstruction versus acute flare-up of chronic pancreatitis. Will hydrate patient with 1 liter of normal saline over 1 hour. We will then decrease rate to 100 mL per hour. Reglan and Zofran available as needed for nausea and vomiting. Monitor Accu-Cheks given patient's history of diabetes mellitus Patient does wish to be a full code and this order is written. Review home medications once they're reconciled by nursing staff At time of discharge medical care will return to primary care provider, Dr Jarad Ames. 02/28/18 Continue with NS at 100ml/hr for gentle hydration. Utilizing Zofran, Reglan, will add Compazine for better nausea control. Will also add scopolamine patch. Patient given MiraLAX, milk of magnesia this morning with results of a moderate bowel movement. CT of the abdomen did not reveal any acute process. Will work on nausea control. Resume home Norvasc and Coreg for better blood pressure control. May utilize hydralazine 10 milligrams IV as needed. Will re-examine later in the day. Hopeful for discharge in the near future once nausea is better controlled. Recheck this afternoon with no significant improvement in symptoms. Did pass some stool without relief. Needing frequent IV antiemetics to control nausea, still having retching. Oral intake minimal - 0% breakfast, only 10% lunch. Will change admission status to inpatient secondary to persistent ab pain and n/ v requiring continued IV pain and nausea medications. 03/01/18 Reduce rate of NS to 60 ml/hr. Weight increasing and pt noticing increasing swelling to extremities. Continue with PRN antiemetics - pt still nauseated/unable to maintain hydration. Hypoglycemia of 60 on labs this am, improved to 81 after glucose gel was given. Will decrease Lantus to 26 U (home dose = 36) F/U with Dr. Diaz regarding drainage from PEG site - consider abx coverage. 03/02/18 Symptoms improving: nausea decreasing, oral drive increasing, pain stable without IV medications. Did very well with PT this am - completed activities without limitations. Patient feels up to going home, really wants to be discharged. Medically, feel this is reasonable. Recommend bland diet with plenty of liquids, increasing as able. Blood sugars very well controlled - would have pt decrease Lantus to 26U to decrease risk for hypoglycemia. Anticipate needing to gradually increase back to 36 units. Encourage bowel motivation: Daily Miralax-holding with loose stool. MOM and Dulcolax suppositories as needed. Continue home Zofran prn nausea. F/U with Dr Ames in 1 week. See orders for details.
--- NOTE | 2018-03-02 19:40 | Discharge Summary ---
Discharge Information Date of admission: 02/28/18 16:01 Anticipated date of discharge: 03/02/18 Attending Physician: Kyle Rodriges MD Primary care physician: Jarad Ames MD Consults: PT/OT - Discharge Diagnosis (1) Abdominal pain Status: Acute (2) Vomiting Status: Acute Discharge disposition Acute abdominal pain Associated condition and complications Nausea and Vomiting secondary to narcotic pain medications Constipation secondary to narcotic pain medications Chronic Low back pain Hx chronic pancreatitis Type II diabetes mellitus Hypertension Peripheral neuropathy Stage III CKD Hx feeding tube with pancreatitis Obesity with BMI 36.2 - Laboratory Labs: Admit Lab 02/27/18 15:03 WBC 8.0 Hgb 14.6 Hct 44.5 MCV 90.3 Plt Count 268 Neut % (Auto) 66.3 H Lymph % (Auto) 22.6 L Ponce % (Auto) 8.0 Eos % (Auto) 1.4 Baso % (Auto) 1.4 Admit Lab 02/27/18 02/27/18 15:03 15:46 Sodium 144 Potassium 4.1 Chloride 104 Carbon Dioxide 27 Anion Gap 13 BUN 12.0 Creatinine 1.0 GFR Calculation 54 BUN/Creatinine Ratio 12 Glucose 175 H Calculated Osmolality 281 H Calcium 9.4 Magnesium 2.0 Total Bilirubin 0.70 AST 28 ALT 24 Alkaline Phosphatase 189 H C-Reactive Protein 11.3 H Total Protein 8.1 Albumin 4.6 Globulin 3.5 Albumin/Globulin Ratio 1.3 Prealbumin 19.9 Lipase 26 03/01/18 04:31 03/02/18 08:46 - Microbiology None - Radiology Radiology: Date of Exam: 02/27/18 Type of Exam: CT abdomen pelvis w con Findings: The lung bases are clear. Moderate sized hiatal hernia appears to be a paraesophageal type. The liver shows no enhancing mass. Mild bile duct dilatation probably relates to age and prior cholecystectomy. No obvious common duct stone. The spleen is unremarkable. Pancreas is mostly fatty replaced. The right adrenal gland is normal. Small adenomas or adenomatous hyperplasia of the left adrenal gland. The kidneys are normal. No abdominal or pelvic lymphadenopathy. Bladder is decompressed. Uterus is absent. No free fluid or evidence of a bowel obstruction. Small fat-containing umbilical hernia. Bone windows show degenerative and postoperative changes in the lumbar spine. Impression: No acute disease process seen in the abdomen or pelvis. History of Present Illness HPI: Patient is a 72-year-old female who had a recent history of sciatica pain radiating down the right leg. On 02/25/18, the pain got severe, patient went to [facility] for evaluation. There she was given IV pain medication and discharged home with oral oxycodone 5 milligram tabs. Tuesday evening following taking oxycodone she began to have vomiting and this was persistent on Tuesday. Last night she began having increased abdominal pain accompanied with nausea. This morning she was able to have one very hard bowel movement and also had some bright red blood from straining. She does have a known history of hemorrhoids. This afternoon patient presented to see Dr. Zambrano at [facility] due to her increased abdominal pain and vomiting. He felt the patient needed acute evaluation and treatment. He contacted the hospitalist services and patient was sent as a direct admission to [facility] hospitalist staff. She is admitted as outpatient observation under the care of Dr. Rodriges. Salima is seen for initial examination on arrival. She is alert, oriented, appears to be in a mild amount of distress and relates this to her abdominal pain. She reports currently the pain is worse on the left side of her abdomen at the site of a previous feeding tube. She reports she had the feeding tube for less than 1 year following diagnosis of acute pancreatitis. She has no further problems since that time. For complete details of the H&P refer to that document. Objective Vital signs: Temperature 97 F 03/02/18 08:27 Pulse Rate 68 03/02/18 11:34 Respiratory Rate 20 03/02/18 13:15 Blood Pressure 180/99 H 03/02/18 11:34 Pulse Oximetry 95 03/02/18 13:15 Height/Weight/BMI: Height 1.65 m Weight 98.6 kg Body Mass Index 35.2 Hospital Course This is a general summary of the patient's hospital course. For more details refer to the complete medical record. Hospital course: 02/27/18 Admit patient outpatient observation under the care of Dr. Rodriges for acute abdominal pain with nausea and vomiting. Will begin acute workup, CBC, CMP, magnesium, prealbumin, and urinalysis. Will place patient on cardiac telemetry to review cardiac rhythm. Will obtain CT scan of the abdomen and pelvis to rule out acute obstructive pattern or pancreatitis. Etiology of abdominal pain and nausea is unclear as this could be secondary to use of oxycodone versus bowel obstruction versus acute flare-up of chronic pancreatitis. Will hydrate patient with 1 liter of normal saline over 1 hour. We will then decrease rate to 100 mL per hour. Reglan and Zofran available as needed for nausea and vomiting. Monitor Accu-Cheks given patient's history of diabetes mellitus Patient does wish to be a full code and this order is written. Review home medications once they're reconciled by nursing staff At time of discharge medical care will return to primary care provider, Dr Jarad Ames. 02/28/18 Continue with NS at 100ml/hr for gentle hydration. Utilizing Zofran, Reglan, will add Compazine for better nausea control. Will also add scopolamine patch. Patient given MiraLAX, milk of magnesia this morning with results of a moderate bowel movement. CT of the abdomen did not reveal any acute process. Will work on nausea control. Resume home Norvasc and Coreg for better blood pressure control. May utilize hydralazine 10 milligrams IV as needed. Will re-examine later in the day. Hopeful for discharge in the near future once nausea is better controlled. Recheck this afternoon with no significant improvement in symptoms. Did pass some stool without relief. Needing frequent IV antiemetics to control nausea, still having retching. Oral intake minimal - 0% breakfast, only 10% lunch. Will change admission status to inpatient secondary to persistent ab pain and n/ v requiring continued IV pain and nausea medications. 03/01/18 Reduce rate of NS to 60 ml/hr. Weight increasing and pt noticing increasing swelling to extremities. Continue with PRN antiemetics - pt still nauseated/unable to maintain hydration. Hypoglycemia of 60 on labs this am, improved to 81 after glucose gel was given. Will decrease Lantus to 26 U (home dose = 36) F/U with Dr. Diaz regarding drainage from PEG site - consider abx coverage. 03/02/18 Symptoms improving: nausea decreasing, oral drive increasing, pain stable without IV medications. Did very well with PT this am - completed activities without limitations. Patient feels up to going home, really wants to be discharged. Medically, feel this is reasonable. Recommend bland diet with plenty of liquids, increasing as able. Blood sugars very well controlled - would have pt decrease Lantus to 26U to decrease risk for hypoglycemia. Anticipate needing to gradually increase back to 36 units. Encourage bowel motivation: Daily Miralax-holding with loose stool. MOM and Dulcolax suppositories as needed. Continue home Zofran prn nausea. F/U with Dr Ames in 1 week. See orders for details. Time spent with patient: discharge greater than 30 minutes Resuscitation Status: Full Code Discharge Plan - Discharge Disposition Discharge Date: 03/02/18 Disposition: Discharged Home, Self-Care *Condition: Stable Reason For Visit (Visit label in EMR): Nausea,vomiting, abdominal pain - Discharge Medications *Discharge Medications: New Bisacodyl Supp [Dulcolax] 10 mg RECTALLY DAILY PRN suppositor PRN Reason: Constipation Milk of Magnesia [Mom] 30 ml PO DAILY PRN udc PRN Reason: Constipation PEG 3350 17gm PACKET [Miralax] 17 gm PO DAILY packet Insulin Glargine,Hum.rec.anlog [Lantus] 26 unit SQ HS vial Continue Furosemide [Lasix 40 mg Tab] 40 mg PO BID Fluticasone Nasal [place] [Flonase] 2 spray INTRANASAL DAILY Insulin Aspart [Novolog Flexpen] See Protocol SQ TID Lactobacillus Acidophilus [Probiotic] 1 each PO DAILY Tolterodine LA 4 mg [Detrol LA] 4 mg PO DAILY Citalopram [Celexa] 1 tab PO DAILY Amlodipine Besylate [Norvasc] 5 mg PO HS Docusate Sodium [Stool Softener] 100 mg PO HS Vit A/Vit C/Vit E/Zinc/Copper [Preservision Areds Tablet] 1 tab PO QTUTHSASU Albuterol Sulfate 1 vial INH PRN PRN PRN Reason: respiratory Ondansetron [Zofran Odt] 1 tab PO Q6HR PRN PRN Reason: nausea aspirin 81 mg tablet,delayed release 81 mg PO DAILY tab multivitamin with minerals-folic acid 0.4 mg tablet 1 tab PO QMWF tab Symbicort (Budesonide 160 mcg-Formoterol 4.5 mcg)/actuation aerosol inhaler 2 puff INH BID g Vitamin B12 2,500 mcg PO DAILY Vitamin D3 (cholecalciferol) 1,000 unit capsule 1,000 unit PO DAILY cap Zyrtec (Cetirizine) 10 mg tablet 10 mg PO DAILY tab azithromycin 500 mg tablet 1 tab PO QMWF 28 Days #12 Coreg (carvedilol) 12.5 mg tablet 6.25 mg PO BID #90 tab K-Tab (potassium chloride ER) 20 mEq tablet 20 meq PO DAILY #30 tab Prevacid (Lansoprazole) 30 mg capsule,delayed release 30 mg PO DAILY #90 cap Spiriva Respimat (tiotropium bromide) 2.5 mcg/actuation, inhalation 2 puff INH BID g Mag-64 (magnesium chloride) 64 mg tablet,delayed release 64 mg PO DAILY tab Lyrica (pregabalin) 75 mg capsule 75 mg PO BID #180 cap Roxicodone (Oxycodone) 5 mg tablet 5 mg PO Q6H PRN 5 Days tab PRN Reason: pain Lipitor (atorvastatin) 40 mg tablet 40 mg PO HS #30 tab Discontinued Lantus (insulin glargine) 100 unit/mL SQ 36 unit SQ HS ml - Discharge Packet/Instructions *Diet: [place] diet with plenty of liquids, minimize sodium. Advance as able to 2000 KCAL ADA low sodium. *Activity: Increase as able. *Pain Management/Treatment: Continue prior home pain medicaitons. Cautious use of Roxicodone (oxycodone) as can cause nausea and constipation. *Wound Care: n/a Additional Instructions: Recommend Miralax 17grams once a day to help stools - can decrease as bowel movements improve. May use MOM and Dulcolax suppositories as needed for constipation. *Expected Signs/Symptoms: Decreasing nausea and improvement of bowel function. With decreased oral intake - be cautious about use of Lasix (furosemide) as it can cause lose of fluid which may lead to dehydrations. Sugars were running very well in hospitalization and your Lantus was decreased to 26 units. As your appetite increases, would will need to gradually increase Lantus back to 36 units. *Notify Physician if: Temp >100.4. Increasing constipation or nausea. *During Business Hours Contact: Dr Ames. *After Business Hours Contact: Call [facility] and have Dr Ames contacted. *Pending Lab/Results: No Pending Lab - Referrals/Follow Up *Referrals/Follow Up: Jarad Ames MD [Primary Care Provider] - 1 Week (Hopsital follow up for ab pain , N/V. ) - Patient Handouts - Dismissal Complete Discharge Instructions are:: Complete Physician Narrative - Narrative Physician: Kyle Rodriges MD Attestation Narrative: Date: 03/02/18 Time: 1936 I have independently interviewed and examined patient prior to discharge. See my progress note for details. Medically stable for discharge to home.
== END 2018-03-02 15:50 | disposition home or self-care (01) | DRG 392 ==
LOC: MED → SUATTDRO 14:16
PROVIDERS: ADMIT Internal Medicine; ATTEND Hospitalist